=== PATIENT | male | born 1955 | race Caucasian/White ===

== ENCOUNTER 2017-08-23 19:42 | Inpatient (IN) | payer OTHER ==
[~2017-08-23] VITALS: Wt 112.6 kg
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
--- NOTE | ~2017-08-23 | S ---
[facility] [place] [address] [place] [address] SURGICAL PATH RPT PROCEDURE Name: LUNA JUNIOR Room #: 213-P ADM IN M.R.#: [id number] Admission: 08/23/17 Date of : 59 Discharge: Report #: [id number] Path Case #: [id number] PATHOLOGY REPORT COLLECTION DATE: 08/24/2017 RECEIVED DATE: 08/25/2017 SUBMITTING PHYS: Dr. Gabo Estevez OTHER PHYS: Dr. Kartik Bull SPECIMEN(S) RECEIVED: A.Perineal tissue * * * * * * * * * * * * FINAL DIAGNOSIS: "Perineal tissue", debridement: - Vascularized fibroadipose connective tissue and skeletal muscle with extensive acute and chronic inflammation, necrosis and granulation tissue. (CLW:teresa; 08/26/2017) PATHOLOGIST: Gisele Cortez M.D. REPORT ELECTRONICALLY SIGNED BY: Gisele Cortez M.D. DATE/TIME: 08/26/2017 21:59 * * * * * * * * * * * * GROSS PATHOLOGY: The specimen is received in formalin, labeled "Luna Junior, perineal tissue," and consists of six fragments of cruz soft tissue measuring 3.8 x 1.1 x 0.6 cm in aggregate dimensions. Foot Specialist sections are submitted in cassette A1. (SDY; 08/25/2017) CLINICAL HISTORY: Perirectal abscess INITIAL CPT CODE(S): A; 02952 Professional services performed by [facility] at [facility] [address], [place] [address] Technical services performed by [facility] at [address] [place] [id number]. [facility] [address] [place] [address] SURGICAL PATH RPT PROCEDURE Name: LUNA JUNIOR Room #: 213-P ADM IN M.R.#: [id number] Admission: 08/23/17 Date of : 59 Discharge: Report #: [id number] Path Case #: [id number] [address] PHONE: [phone] DIRECTOR: Norm Méndez M.D. * * * END OF REPORT * * *
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
[~2017-08-23 19:42] MED LIST: GLUCOPHAGE XR500 MG PO; GLUCOPHAGE500 MG PO; JANUVIA100 MG PO; LISINOPRIL10 MG PO; PERCOCET 5-3251 EACH PO; PREDNISONE 20 M20 M1 PO
[2017-08-23 19:44] VITALS: BP 127/69
[2017-08-23 20:18] LABS: HEMATOCRIT 42.2 % (42.0-52.0); HEMOGLOBIN 14.3 gm/dL (14.0-18.0); MANUAL DIFF YES; MCHC 33.9 g/dL (28.0-37.0); MCV 82.5 fL (80.0-100.0); PLATELET COUNT 169 thou/uL (150-400); RBC 5.12 mil/uL (4.50-6.00); RDW 14.1 % (10.5-14.5); WBC 21.5 thou/uL (4.0-11.0)
[2017-08-23 20:30] LABS: CALCIUM 8.4 mg/dL (8.5-10.1); CREATININE 1.3 mg/dL (0.7-1.3)
[2017-08-23 20:36] LABS: ALBUMIN 3.2 g/dL (3.4-5.0); TOTAL BILIRUBIN 1.7 mg/dL (<0.1-1.0); TOTAL PROTEIN 6.1 g/dL (6.4-8.2)
[2017-08-23 20:59] LABS: ABSOLUTE NEUTROPHILS 19.6 thou/uL (1.4-8.2); TOTAL CELL COUNT 100
[2017-08-23 22:00] VITALS: BP 158/78
[2017-08-23 22:53] VITALS: BP 150/86
[2017-08-24 04:01] VITALS: BP 118/71
[2017-08-24 04:48] LABS: HEMATOCRIT 40.2 % (42.0-52.0); HEMOGLOBIN 13.5 gm/dL (14.0-18.0); MCH 27.7 pg (26.0-34.0); MCHC 33.5 g/dL (28.0-37.0); MCV 82.8 fL (80.0-100.0); RBC 4.85 mil/uL (4.50-6.00); RDW 13.6 % (10.5-14.5); WBC 20.9 thou/uL (4.0-11.0)
[2017-08-24 04:59] LABS: PROTIME 10.7 Seconds (9.3-11.4)
[2017-08-24 05:07] LABS: CALCIUM 8.1 mg/dL (8.5-10.1); CREATININE 1.3 mg/dL (0.7-1.3); POTASSIUM 3.7 mmol/L (3.5-5.1)
[2017-08-24 08:00] VITALS: BP 129/82
[2017-08-24 12:00] VITALS: BP 113/75
[2017-08-24 16:00] VITALS: BP 95/58
[2017-08-24 19:45] VITALS: BP 114/76
[2017-08-25 00:07] LABS: GLYCOHEMOGLOBIN (HGB A1C) 10.5 % (4.8-5.6)
[2017-08-25 00:12] VITALS: BP 113/82
[2017-08-25 04:30] VITALS: BP 121/77
[2017-08-25 04:37] LABS: ABSOLUTE NEUTROPHILS 15.1 thou/uL (1.4-8.2); BASOPHILS 0.4 % (0.0-2.0); EOSINOPHILS 1.3 % (0.0-3.0); HEMOGLOBIN 12.3 gm/dL (14.0-18.0); LYMPHOCYTES 7.8 % (24.0-44.0); MCH 27.9 pg (26.0-34.0); MCHC 33.1 g/dL (28.0-37.0); MCV 84.4 fL (80.0-100.0); PLATELET COUNT 162 thou/uL (150-400); POLYS 83.5 % (36.0-66.0); RBC 4.39 mil/uL (4.50-6.00); RDW 14.2 % (10.5-14.5)
[2017-08-25 04:40] LABS: MANUAL DIFF NO
[2017-08-25 04:50] LABS: CALCIUM 7.9 mg/dL (8.5-10.1); POTASSIUM 3.7 mmol/L (3.5-5.1)
[2017-08-25 07:30] VITALS: BP 126/82
[2017-08-25 11:00] VITALS: BP 134/88
[2017-08-25 15:18] VITALS: BP 118/73
[2017-08-25 19:56] VITALS: BP 145/69
[2017-08-26 03:39] VITALS: BP 138/78
[2017-08-26 04:23] LABS: HEMATOCRIT 34.8 % (42.0-52.0); HEMOGLOBIN 11.7 gm/dL (14.0-18.0); MCHC 33.5 g/dL (28.0-37.0); MCV 83.5 fL (80.0-100.0); PLATELET COUNT 194 thou/uL (150-400); RBC 4.17 mil/uL (4.50-6.00); WBC 14.9 thou/uL (4.0-11.0)
[2017-08-26 04:24] LABS: MANUAL DIFF YES
[2017-08-26 04:32] LABS: CALCIUM 7.7 mg/dL (8.5-10.1); CREATININE 0.9 mg/dL (0.7-1.3); POTASSIUM 3.7 mmol/L (3.5-5.1)
[2017-08-26 07:48] VITALS: BP 137/74
[2017-08-26 08:55] LABS: ABSOLUTE NEUTROPHILS 11.6 thou/uL (1.4-8.2); ANISOCYTOSIS SLIGHT; TOTAL CELL COUNT 100
[2017-08-26 11:30] VITALS: BP 128/99
[2017-08-26 15:35] VITALS: BP 148/76
[2017-08-26 19:54] VITALS: BP 145/85
[2017-08-26 23:54] VITALS: BP 149/82
[2017-08-27 03:55] VITALS: BP 13/93
[2017-08-27 07:58] VITALS: BP 160/100
[2017-08-27 09:02] LABS: ABSOLUTE NEUTROPHILS 8.6 thou/uL (1.4-8.2); BASOPHILS 0.8 % (0.0-2.0); EOSINOPHILS 2.1 % (0.0-3.0); HEMOGLOBIN 12.3 gm/dL (14.0-18.0); LYMPHOCYTES 11.7 % (24.0-44.0); MCH 27.8 pg (26.0-34.0); MCHC 33.3 g/dL (28.0-37.0); MCV 83.6 fL (80.0-100.0); MONOCYTES 8.4 % (1.0-8.0); PLATELET COUNT 244 thou/uL (150-400); RBC 4.43 mil/uL (4.50-6.00); WBC 11.2 thou/uL (4.0-11.0)
[2017-08-27 09:03] LABS: MANUAL DIFF NO
[2017-08-27 09:13] LABS: CALCIUM 8.3 mg/dL (8.5-10.1); POTASSIUM 3.3 mmol/L (3.5-5.1)
[2017-08-27 11:30] VITALS: BP 150/93
[2017-08-27 15:45] VITALS: BP 154/85
[2017-08-27 19:19] VITALS: BP 158/96
[2017-08-28 03:28] VITALS: BP 160/89
[2017-08-28 03:48] LABS: CALCIUM 8.3 mg/dL (8.5-10.1); CREATININE 0.8 mg/dL (0.7-1.3); HEMATOCRIT 35.2 % (42.0-52.0); HEMOGLOBIN 11.6 gm/dL (14.0-18.0); MCH 27.6 pg (26.0-34.0); MCHC 33.1 g/dL (28.0-37.0); MCV 83.4 fL (80.0-100.0); PLATELET COUNT 257 thou/uL (150-400); POTASSIUM 3.9 mmol/L (3.5-5.1); RBC 4.22 mil/uL (4.50-6.00); RDW 14.1 % (10.5-14.5); WBC 12.5 thou/uL (4.0-11.0)
[2017-08-28 03:51] LABS: MANUAL DIFF YES
[2017-08-28 05:29] LABS: ABSOLUTE NEUTROPHILS 7.8 thou/uL (1.4-8.2); ATYPICAL LYMPHS 1 %; LARGE PLATELETS OCCASIONAL; TOTAL CELL COUNT 100
[2017-08-28 07:20] VITALS: BP 135/81
[2017-08-28 11:25] VITALS: BP 155/86
[2017-08-28 15:15] VITALS: BP 145/85
[2017-08-28 19:52] VITALS: BP 165/97
[2017-08-28 23:47] VITALS: BP 155/87
[2017-08-29] VITALS (7 sets, daily range): BP systolic 151–165; BP diastolic 87–91
[2017-08-29] MEDS ORDERED: FLOMAX0.4 MG PO (09:04)
[2017-08-29] MEDS ORDERED: PERCOCET 7.5-31 EACH PO (09:05)
[2017-08-29] MEDS ORDERED: LISINOPRIL20 MG PO (09:05)
[2017-08-29] MEDS ORDERED: AUGMENTIN 875-1 EACH PO (09:08)
[2017-08-29 10:56] LABS: ABSOLUTE NEUTROPHILS 8.1 thou/uL (1.4-8.2); BASOPHILS 1.5 % (0.0-2.0); EOSINOPHILS 3.1 % (0.0-3.0); HEMATOCRIT 36.5 % (42.0-52.0); HEMOGLOBIN 12.6 gm/dL (14.0-18.0); LYMPHOCYTES 12.4 % (24.0-44.0); MCH 28.3 pg (26.0-34.0); MCHC 34.5 g/dL (28.0-37.0); MCV 82.1 fL (80.0-100.0); MONOCYTES 9.3 % (1.0-8.0); PLATELET COUNT 320 thou/uL (150-400); POLYS 73.7 % (36.0-66.0); RBC 4.45 mil/uL (4.50-6.00); RDW 13.9 % (10.5-14.5)
[2017-08-29 10:58] LABS: MANUAL DIFF NO
[2017-08-29 11:04] LABS: CALCIUM 9.1 mg/dL (8.5-10.1); POTASSIUM 3.7 mmol/L (3.5-5.1)
== END 2017-08-29 17:15 | disposition home health service (06) | DRG 853 ==
LOC: ER 19:42 → EROBS 21:03 → 2N 21:03 → ENTRNSPT 08-29 16:53 → 2N 08-29 17:15
PROVIDERS: Family Medicine; Nurse Practitioner Acute Care; Nurse Practitioner Family; Surgery
PROC: 0KBM0ZZ Excision of Perineum Muscle, Open Approach (ICD-10-PCS; principal; 2017-08-24)
DX: A41.9 Sepsis, unspecified organism (principal); N17.0 Acute kidney failure with tubular necrosis; K61.0 Anal abscess; K61.1 Rectal abscess; I10 Essential (primary) hypertension; E88.09 Other disorders of plasma-protein metabolism, not elsewhere classified; E11.65 Type 2 diabetes mellitus with hyperglycemia; G47.33 Obstructive sleep apnea (adult) (pediatric); G43.909 Migraine, unspecified, not intractable, without status migrainosus; F17.210 Nicotine dependence, cigarettes, uncomplicated; E66.9 Obesity, unspecified; N13.9 Obstructive and reflux uropathy, unspecified; R33.9 Retention of urine, unspecified; Z79.899 Other long term (current) drug therapy
CPT/HCPCS: 10081; 50101; 50386; 50403; 53353; 53354; 62110; 62900; 70005

== ENCOUNTER → 2017-09-10 | Outpatient (CLI) | payer OTHER ==
[~2017-09-10] MED LIST changes: +AUGMENTIN 875-1 EACH PO; +FLOMAX0.4 MG PO; +LISINOPRIL20 MG PO; +PERCOCET 7.5-31 EACH PO
== END ==
LOC: HYPER 09-02 13:49
DX: T81.31XA Disruption of external operation (surgical) wound, not elsewhere classified, initial encounter (principal); E11.628 Type 2 diabetes mellitus with other skin complications; E66.9 Obesity, unspecified; Z68.30 Body mass index [BMI] 30.0-30.9, adult; F17.200 Nicotine dependence, unspecified, uncomplicated; Y92.89 Other specified places as the place of occurrence of the external cause; Z79.84 Long term (current) use of oral hypoglycemic drugs; Y83.8 Other surgical procedures as the cause of abnormal reaction of the patient, or of later complication, without mention of misadventure at the time of the procedure

== ENCOUNTER → 2017-10-28 | Outpatient (CLI) | payer OTHER | LOC: HYPER 07:14 | DX: T81.31XD Disruption of external operation (surgical) wound, not elsewhere classified, subsequent encounter (principal); E11.628 Type 2 diabetes mellitus with other skin complications; E66.9 Obesity, unspecified; F17.200 Nicotine dependence, unspecified, uncomplicated; Z68.30 Body mass index [BMI] 30.0-30.9, adult; Z79.84 Long term (current) use of oral hypoglycemic drugs; Y83.8 Other surgical procedures as the cause of abnormal reaction of the patient, or of later complication, without mention of misadventure at the time of the procedure ==

== ENCOUNTER 2017-11-09 20:44 | Inpatient (IN) | payer OTHER ==
[~2017-11-09] VITALS: Ht 177.8 cm; Wt 95.3 kg
--- NOTE | ~2017-11-09 | P ---
[facility] [place] [address] PROCEDURE REPORT Name: LUNA BAPTISTE Room #: 426-P ADM IN M.R.#: [id number] Admission: 11/10/17 Attend Phys: Larry Toscano MD Discharge: Date of : 59 Report #: [id number] THIS REPORT FOR: //name// CC: Larry Bull MD DATE OF SERVICE: 11/12/2017 Pt has a pilonidal cyst that may need surgical attention. The patient of Dr. Larry Toscano and Dr. Dennis Bull. PROCEDURE: Colonoscopy with biopsies. INDICATION FOR PROCEDURE: This patient has a history of colitis, hematochezia and leukocytosis. He has a family history of Crohn disease. He has left lower quadrant pain and some milder mid right abdominal pain. He has a history of a perirectal abscess. Informed consent for this procedure was obtained prior to the administration of any medication. The risks of the procedure, which include bleeding, perforation, infection, complications of sedation and the possibility I could miss something have been explained to the patient and he has indicated his consent by signing. DESCRIPTION OF PROCEDURE: Propofol was slowly titrated before and during this procedure for the patient's comfort. The [employer] colonoscope was introduced through the anal sphincter and advanced under direct visualization to the terminal ileum. Findings were noted on withdrawal of the scope. The terminal ileal mucosa appears normal. Biopsies were obtained from the ileum to evaluate for possible microscopic signs of Crohn disease. Cecum: Normal mucosa. Ascending colon: In the distal ascending colon, there was an area of erythema and micro erosions. Biopsies were obtained x 2 from this area for histopathology. Good hemostasis was noted after all the biopsies. The remaining ascending colonic mucosa appears normal. Hepatic flexure: Normal mucosa. Transverse colon: A single uncomplicated diverticulum was noted in the mid transverse colon. Splenic flexure: There was erythema at the splenic flexure and biopsies were obtained x 2 for histopathology. At approximately 50 cm in the descending colon, there was erythematous, edematous ulcerated mucosa and what appeared to be an area of relative stricturing. Biopsies were obtained x 4 from this area. Distal to this ulcerated area at 50 cm, the mucosa remains erythematous down to the sigmoid colon at about 40 cm and here the mucosa was once again ulcerated, but the ulcerations were all on one side of the colon, to me suggesting possible ischemia. Multiple biopsies were obtained from this area as well and good hemostasis was noted after those biopsies. There were several uncomplicated diverticula noted in the sigmoid colon as well. Rectum: Normal [facility] [address] [place] [address] PROCEDURE REPORT Name: LUNA BAPTISTE Room #: 426-P [facility] IN ..#: [id number] Admission: 11/10/17 Attend Phys: Larry Toscano MD Discharge: Date of : 59 Report #: [id number] mucosa. Retroflex view reveals only an uncomplicated internal hemorrhoid. The scope was withdrawn. The patient went to the recovery area in a stable condition. He tolerated the procedure well. IMPRESSION: 1. Patches of erythema, edema and ulceration consistent with colitis in the ascending colon, splenic flexure and extending from 50 cm down to approximately 35 cm in the left colon. Biopsies were obtained from all of these areas and are pending. 2. Uncomplicated diverticulosis in the transverse colon and sigmoid colon. 3. Internal hemorrhoid. 4. Biopsies were taken randomly from the following locations: Terminal ileum x 2, distal ascending colon x 2, splenic flexure x 2, 50 cm in the descending colon x 4 and sigmoid colon x 2. RECOMMENDATIONS: To await the path report. Good hemostasis as mentioned was noted after all biopsies. I think that the above skip lesion pattern in a patient with a history of perirectal abscess and a family history of Crohn disease would argue in favor of the possible Crohn disease diagnosis in this patient; however, we will await the biopsies to determine that as ischemic colitis may also be in the differential diagnosis. Thank you very much once again for allowing me to participate in his care, Dr. Toscano and Dr. Bull. <ELECTRONICALLY SIGNED> By: Lary Reid DO 11/13/17 0908 1516 0023 Lary Reid DO /nt
--- NOTE | ~2017-11-09 | S ---
[facility] [place] [address] SURGICAL PATH RPT PROCEDURE Name: LUNA JUNIOR Room #: 426-P DIS IN M.R.#: [id number] Admission: 11/10/17 Date of : 59 Discharge: 11/13/17 Report #: [id number] Path Case #: [id number] PATHOLOGY REPORT COLLECTION DATE: 11/12/2017 RECEIVED DATE: 11/12/2017 SUBMITTING PHYS: Dr. Lary Reid OTHER PHYS: Dr. Dennis Toscano SPECIMEN(S) RECEIVED: A.Terminal ileum R/O Crohn's B.Ascending colon-colonic erosions C.Patch of colitis at splenic flexure D.Edematous mucosa at 50 cm E.Ulcers at 40 cm * * * * * * * * * * * * FINAL DIAGNOSIS: A. Terminal ileum R/O Crohn's: - Unremarkable small bowel mucosa. - No evidence of microscopic colitis or inflammatory bowel disease. B. Ascending colon-colonic erosions: - Chronic active colitis, severe, with architectural distortion and crypt abscesses. - No granulomas are present. C. Patch of colitis at splenic flexure: - Chronic active colitis, mild and focal. - Architectural distortion is minimal. - No granulomas are present. D. Edematous mucosa at 50 cm: - Chronic active colitis, mild to moderate, with architectural distortion. - No granulomas are present. - See comment. E. Ulcers at 40 cm: - Chronic active colitis, severe, with architectural distortion, ulceration, and focal crypt abscesses. - No granulomas are present. COMMENT: Part D: Although the findings in part D could very well be consistent with inflammatory bowel disease, focal features are present (such as crypt drop out while maintaining architecture) that could be seen in the setting of ischemia as well. Clinical correlation is recommended. [address] [address] SURGICAL PATH RPT PROCEDURE Name: LUNA JUNIOR Room #: 426-P [facility] IN M.R.#: [id number] Admission: 11/10/17 Date of : 59 Discharge: 11/13/17 Report #: [id number] Path Case #: [id number] PATHOLOGIST: Carlos A Hadley M.D. REPORT ELECTRONICALLY SIGNED BY: Carlos A Hadley M.D. DATE/TIME: 11/13/2017 14:25 * * * * * * * * * * * * GROSS PATHOLOGY: A. Received in formalin labeled "RAFY Nguyen, terminal ileum, rule out Crohn's," are 2 segments of cruz soft tissue measuring 0.8 x 0.2 x 0.2 cm in aggregate dimensions and measuring 0.4 cm each in maximum dimension. The specimen is submitted entirely in cassette A1. B. Received in formalin labeled "RAFY Nguyen, ascending coloncolonic erosions," are 3 segments of cruz soft tissue measuring 0.5 x 0.4 x 0.3 cm in aggregate dimensions and ranging from 0.2 to 0.4 cm in maximum dimension. The specimen is submitted entirely in cassette B1. C. Received in formalin labeled "RAFY Nguyen patch of colitis at splenic flexure," are 2 segments of cruz soft tissue measuring 0.8 x 0.3 x 0.2 cm in aggregate dimensions and ranging from 0.3 to 0.5 cm in maximum dimension. The specimen is submitted entirely in cassette C1. D. Received in formalin labeled "Luna Junior, RAFY edematous mucosa 50 cm," are 5 segments of cruz soft tissue measuring 0.9 x 0.7 x 0.2 cm in aggregate dimensions and ranging from 0.2 to 0.3 cm in maximum dimension. The specimen is submitted entirely in cassette D1. E. Received in formalin labeled "RAFY Nguyen ulcers at 40 cm," are 4 segments of cruz soft tissue measuring 0.7 x 0.5 x 0.1 cm in aggregate dimensions and ranging from 0.1 to 0.3 cm in maximum dimension. The specimen is submitted entirely in cassette E1. (TSD; 11/12/2017) CLINICAL HISTORY: Pre-OP DX: Abdominal pain Post-OP DX: Colitis and ulcerations INITIAL CPT CODE(S): A; 48206 B; 75296 C; 89094 D; 82661 E; 41922 Professional services performed by [facility] at [address] , [place] [address] Technical services performed by [facility] at [address] [place] [address], [address] [address]. [address] [address] SURGICAL PATH RPT PROCEDURE Name: LUNA JUNIOR Room #: 426-P DIS IN M.R.#: [id number] Admission: 11/10/17 Date of : 59 Discharge: 11/13/17 Report #: [id number] Path Case #: [id number] [facility] [address] [address] PHONE: [phone] DIRECTOR: Norm Méndez M.D. * * * END OF REPORT * * *
[2017-11-09 20:48] VITALS: BP 124/7; BP 124/76
[2017-11-09 22:03] LABS: HEMATOCRIT 43.4 % (42.0-52.0); HEMOGLOBIN 14.8 gm/dL (14.0-18.0); MCH 27.7 pg (26.0-34.0); MCHC 34.2 g/dL (28.0-37.0); MCV 81.2 fL (80.0-100.0); RBC 5.35 mil/uL (4.50-6.00); RDW 14.1 % (10.5-14.5); WBC 14.5 thou/uL (4.0-11.0)
[2017-11-09 22:14] LABS: CALCIUM 8.5 mg/dL (8.5-10.1); CREATININE 1.2 mg/dL (0.7-1.3); POTASSIUM 3.9 mmol/L (3.5-5.1)
[2017-11-09 22:21] LABS: TOTAL BILIRUBIN 1.5 mg/dL (<0.1-1.0)
[2017-11-10 00:39] VITALS: BP 151/93
[2017-11-10 02:00] VITALS: BP 116/75
[2017-11-10 06:16] LABS: HEMATOCRIT 43.5 % (42.0-52.0); HEMOGLOBIN 14.4 gm/dL (14.0-18.0); MCH 27.2 pg (26.0-34.0); MCHC 33.1 g/dL (28.0-37.0); MCV 82.2 fL (80.0-100.0); RBC 5.3 mil/uL (4.50-6.00); RDW 14.4 % (10.5-14.5); WBC 12.7 thou/uL (4.0-11.0)
[2017-11-10 06:18] VITALS: BP 153/90
[2017-11-10 06:30] LABS: CALCIUM 8.2 mg/dL (8.5-10.1)
[2017-11-10 07:25] VITALS: BP 147/77
[2017-11-10 16:18] VITALS: BP 143/91
[2017-11-10 20:00] VITALS: BP 153/89
[2017-11-11 04:40] LABS: HEMATOCRIT 40.5 % (42.0-52.0); HEMOGLOBIN 13.7 gm/dL (14.0-18.0); MCH 27.9 pg (26.0-34.0); MCV 82.3 fL (80.0-100.0); RBC 4.92 mil/uL (4.50-6.00); RDW 14.2 % (10.5-14.5); WBC 10.7 thou/uL (4.0-11.0)
[2017-11-11 04:41] VITALS: BP 142/78
[2017-11-11 04:47] LABS: POTASSIUM 3.8 mmol/L (3.5-5.1)
[2017-11-11 08:00] VITALS: BP 136/84
[2017-11-11 16:00] VITALS: BP 131/80
[2017-11-11 20:00] VITALS: BP 148/85
[2017-11-12 04:15] VITALS: BP 149/78
[2017-11-12 07:52] LABS: HEMATOCRIT 40.3 % (42.0-52.0); HEMOGLOBIN 13.6 gm/dL (14.0-18.0); MCH 27.7 pg (26.0-34.0); MCHC 33.9 g/dL (28.0-37.0); MCV 81.6 fL (80.0-100.0); RBC 4.93 mil/uL (4.50-6.00); WBC 9.7 thou/uL (4.0-11.0)
[2017-11-12 08:08] LABS: CALCIUM 8.2 mg/dL (8.5-10.1); CREATININE 0.9 mg/dL (0.7-1.3); POTASSIUM 3.8 mmol/L (3.5-5.1)
[2017-11-12 08:13] LABS: DIRECT BILIRUBIN 0.1 mg/dL (<0.1-0.3); TOTAL BILIRUBIN 0.6 mg/dL (<0.1-1.0)
[2017-11-12 08:30] VITALS: BP 163/95
[2017-11-12 15:45] VITALS: BP 156/98
[2017-11-12 19:09] VITALS: BP 158/86
[2017-11-13 03:44] VITALS: BP 170/90
[2017-11-13 08:10] VITALS: BP 159/89
[2017-11-13] MEDS ORDERED: CIPRO500 MG PO (12:19)
[2017-11-13] MEDS ORDERED: FLAGYL500 MG PO (12:20)
[2017-11-13] MEDS ORDERED: OXYCODONE-APAP1 EAC6 PO (12:21)
[2017-11-13 13:01] VITALS: BP 159/89
== END 2017-11-13 14:05 | disposition home or self-care (01) | DRG 872 ==
LOC: ER 20:44 → 4E 11-10 00:31 → EROBS 11-10 00:31 → 4E 11-10 00:40
PROVIDERS: Emergency Medicine; Hospitalist; Internal Medicine; Internal Medicine Gastroenterology; Nurse Practitioner Family
PROC: 0DBM8ZX Excision of Descending Colon, Via Natural or Artificial Opening Endoscopic, Diagnostic (ICD-10-PCS; principal; 2017-11-12)
PROC: 0DBL8ZX Excision of Transverse Colon, Via Natural or Artificial Opening Endoscopic, Diagnostic (ICD-10-PCS; principal; 2017-11-12)
PROC: 0DBB8ZX Excision of Ileum, Via Natural or Artificial Opening Endoscopic, Diagnostic (ICD-10-PCS; principal; 2017-11-12)
PROC: 0DBK8ZX Excision of Ascending Colon, Via Natural or Artificial Opening Endoscopic, Diagnostic (ICD-10-PCS; principal; 2017-11-12)
PROC: 0DBN8ZX Excision of Sigmoid Colon, Via Natural or Artificial Opening Endoscopic, Diagnostic (ICD-10-PCS; principal; 2017-11-12)
DX: A41.9 Sepsis, unspecified organism (principal); K92.1 Melena; K63.3 Ulcer of intestine; I10 Essential (primary) hypertension; G43.909 Migraine, unspecified, not intractable, without status migrainosus; E11.65 Type 2 diabetes mellitus with hyperglycemia; K59.00 Constipation, unspecified; K52.9 Noninfective gastroenteritis and colitis, unspecified; K57.30 Diverticulosis of large intestine without perforation or abscess without bleeding; K64.8 Other hemorrhoids; Z79.899 Other long term (current) drug therapy; Z87.891 Personal history of nicotine dependence; Z83.79 Family history of other diseases of the digestive system
CPT/HCPCS: 10084; 62110; 62900

== ENCOUNTER → 2017-12-15 | Outpatient (CLI) | payer OTHER ==
[~2017-12-15] MED LIST changes: +CIPRO500 MG PO; +FLAGYL500 MG PO; +OXYCODONE-APAP1 EAC6 PO
== END ==
LOC: HYPER 07:08
DX: T81.31XD Disruption of external operation (surgical) wound, not elsewhere classified, subsequent encounter (principal); E11.9 Type 2 diabetes mellitus without complications; E66.9 Obesity, unspecified; F17.200 Nicotine dependence, unspecified, uncomplicated; Z68.30 Body mass index [BMI] 30.0-30.9, adult; Z79.84 Long term (current) use of oral hypoglycemic drugs; Y83.8 Other surgical procedures as the cause of abnormal reaction of the patient, or of later complication, without mention of misadventure at the time of the procedure